=== PATIENT | male | born 1970 | race Caucasian/White ===

== ENCOUNTER 2017-08-23 08:00 | Day surgery (SDC) | payer OTHER ==
[~2017-08-23] VITALS: Ht 182.9 cm; Wt 120.4 kg
[2017-08-23 08:52] LABS: HEMATOCRIT 44.4 % (38.0-50.0); MCH 32.3 PG (29.0-34.0); MCHC 34.5 G/DL (30.0-36.0); MCV 93.9 FL (86-99); RBC DIS.WIDTH-CV 11.6 % (11.8-14.6); RBC DIS.WIDTH-SD 40.1 % (39-53); RED BLOOD COUNT 4.73 M/uL (4.00-5.50); WHITE BLOOD COUNT 6.3 K/uL (4.1-10.2)
[2017-08-23 09:02] LABS: CHLORIDE 104 mEq/L (99-109); POTASSIUM 3.7 mEq/L (3.7-5.4); SODIUM 139 mEq/L (136-147)
[2017-08-23 09:03] LABS: GLUCOSE 115 mg/dL (70-99)
[2017-08-23 09:05] LABS: ANION GAP 16 MEQ/L (2-14)
[2017-08-23 09:07] LABS: SERUM ETHYL ALCOHOL 221 mg/dL
[2017-08-23 09:08] LABS: UREA NITROGEN (BUN) 5 mg/dL (9-23)
[2017-08-23 09:09] LABS: GFR ESTIMATE (CALCULATED) > 59 mL/min/ (58.99-99999)
[2017-08-23 09:34] LABS: INTER. NORMALIZED RATIO 1.1; PROTHROMBIN TIME 12.8 SEC (10.2-12.9)
[2017-08-23 09:37] LABS: PTT 33.2 SEC (25-37)
[2017-08-23 09:40] LABS: IMM.PLATELET FRACTION 9.8 (1-7); MEAN PLAT.VOLUME 10.9 uM^3 (9.0-12.4); PLAT.SUFFICIENCY VERY DECREASED; PLATELET COUNT 30 K/uL (156-360)
[2017-08-23 19:25] VITALS: BP 95/50
[2017-08-23 23:37] VITALS: BP 95/50
[2017-08-24 03:52] VITALS: BP 116/60
[2017-08-24 08:19] VITALS: BP 121/76
[2017-08-24] MEDS ORDERED: ASPIR-LOW81 MG PO (09:15)
[2017-08-24] MEDS ORDERED: OXYCODONE HCL5 MG PO (09:16)
[2017-08-24 11:23] VITALS: BP 138/63
== END 2017-08-24 13:27 | disposition home or self-care (01) ==
LOC: EME 08:00 → SDC 17:04 → 3EAST 17:22 → 2SOUTH 17:22 → ENRESERV 17:35 → 3EAST 19:20
PROVIDERS: Nurse Practitioner Family
DX: S82.851A Displaced trimalleolar fracture of right lower leg, initial encounter for closed fracture (principal); Z72.0 Tobacco use; Z72.89 Other problems related to lifestyle; W19.XXXA Unspecified fall, initial encounter; W17.89XA Other fall from one level to another, initial encounter; Y92.410 Unspecified street and highway as the place of occurrence of the external cause; S01.01XA Laceration without foreign body of scalp, initial encounter; S00.219A Abrasion of unspecified eyelid and periocular area, initial encounter
CPT/HCPCS: 70450; 71010; 72125; 73600; 73610; 76000; 80048; 85027; 85610; 85730; 93005; C1713; G0378; G0480; J0131; J0690; J1100; J1170; J1885; J2250; J2270; J2405; J3010; J7030